=== PATIENT | male | born 1965 | race Two or more races ===

== ENCOUNTER 2018-04-24 12:48 | Emergency (ER) | payer MEDICAID ==
[~2018-04-24] VITALS: Ht 170.2 cm; Wt 77.1 kg
[2018-04-24] MEDS ORDERED: Solu-MEDROL 125mg Inj IVP ONE (13:00)
[2018-04-24] MEDS ORDERED: EPINEPHrine 1mg/1ml Amp SUBQ ONE (13:00)
[2018-04-24] MEDS ORDERED: DiphenhydrAMINE 50mg/ml Inj IVP ONE (13:00)
--- NOTE | 2018-04-24 13:15 | Emergency Room Report ---
History of Present Illness General Chief Complaint: Allergic Reaction Source: Patient Present Illness HPI Patient is a 52-year-old male who presented after increased difficulty breathing. Patient gradual onset of symptoms. The patient reportedly had taken Benadryl prior to arrival by mouth. He reports having prior history of allergic reactions. He reports feeling somewhat lightheaded. He denies any vomiting. He reports eating some eggs immediately prior as well as drinking some coffee. The patient onset of symptoms approximate one hour ago. Allergies: Coded Allergies: UNABLE TO ASSESS (Unverified , 04/24/18) Patient History Past Medical History: see triage record Reviewed Nursing Documentation: PMH: Agreed; PSxH: Agreed Nursing Documentation-PMH Past Medical History: No History, Except For Hx Neurological Problems: No - Allergic reactions Review of Systems All Other Systems: negative except mentioned in HPI Physical Exam Vital Signs Date Time Temp Pulse Resp B/P (MAP) Pulse Ox O2 Delivery O2 Flow Rate FiO2 04/24/18 12:55 96.4 73 16 93/62 98 Simple Mask 3.0 96.4 Sp02 EP Interpretation: reviewed, normal General Appearance: normal inspection, well appearing, alert, GCS 15 Head: atraumatic ENT: normal ENT inspection, hearing grossly normal, normal voice Neck: normal inspection, full range of motion, supple, no bony tend Respiratory: normal inspection, lungs clear, normal breath sounds, no respiratory distress, no retraction, no wheezing Cardiovascular #1: regular rate, rhythm, no edema Gastrointestinal: normal inspection, normal bowel sounds, non tender, soft, no guarding, no hernia Genitourinary: no CVA tenderness Musculoskeletal: normal inspection, back normal, normal range of motion Neurologic: normal inspection, alert, responsive, speech normal Psychiatric: normal inspection, judgement/insight normal, mood/affect normal Skin: no rash, other - generalized urticarial rash Medical Decision Making Diagnostic Impression: Primary Impression: Allergic reaction ER Course Patient presented for skin rash. Differential diagnosis included was not limited to Spring-Clifford syndrome, urticaria, erythema multiforme, contact dermatitis. The patient was given IV Benadryl as well as Solu-Medrol and subcutaneous epinephrine. Patient started on IV fluids.The patient was observed in the emergency department was noted to have improvement in his symptoms.The patient stated he felt better wanted to go home. The patient was given restrictions for EpiPen as well as steroids and Benadryl. The patient was advised to return if he began having increased difficulty breathing or other concerns. Last Vital Signs Date Time Temp Pulse Resp B/P (MAP) Pulse Ox O2 Delivery O2 Flow Rate FiO2 04/24/18 12:55 96.4 73 16 93/62 98 Simple Mask 3.0 96.4 Status: improved Disposition: HOME, SELF-CARE Condition: Stable Scripts Prednisone* (PREDNISONE*) 20 Mg Tablet 60 MG ORAL DAILY, #15 TAB Prov: Juan David Schwab MD 04/24/18 Epinephrine (Epipen 2-Stef) 0.3 Mg/0.3 Ml Auto.injct 0.3 MG IM ONCE, #1 EA Prov: Juan David Schwab MD 04/24/18 Diphenhydramine Hcl* (BENADRYL*) 25 Mg Capsule 25 MG ORAL Q6H PRN for Itching, #30 CAP Prov: Juan David Schwab MD 04/24/18 Juan David Schwab MD Apr 24, 2018 13:15
[2018-04-24 13:20] VITALS: BP 105/58
[2018-04-24 13:30] LABS: HEMATOCRIT 55.3 % (42.0-52.0); MEAN CORPUSCULAR VOLUME 88 FL (80-99); PLATELET COUNT 273 K/UL (150-450); RED BLOOD COUNT 6.29 M/UL (4.70-6.10); RED CELL DISTRIBUTION WIDTH 11.6 % (11.6-14.8); WHITE BLOOD COUNT 10.7 K/UL (4.8-10.8)
[2018-04-24 13:31] LABS: HEMOGLOBIN 18.5 G/DL (14.2-18.0)
[2018-04-24 13:41] LABS: ANION GAP 8 mmol/L (5-15); BLOOD UREA NITROGEN 18 mg/dL (7-18); CALCIUM 9.5 MG/DL (8.5-10.1); CARBON DIOXIDE 25 MMOL/L (21-32); CHLORIDE 105 MMOL/L (98-107); CREATININE 1.3 MG/DL (0.55-1.30); POTASSIUM 3.8 MMOL/L (3.5-5.1); SODIUM 138 MMOL/L (136-145)
[2018-04-24 13:47] LABS: ALANINE AMINOTRANSFERASE 33 U/L (12-78); ALBUMIN/GLOBULIN RATIO 1.1 (1.0-2.7); ALKALINE PHOSPHATASE 68 U/L (46-116); ASPARTATE AMINO TRANSFERASE 19 U/L (15-37); BILIRUBIN,TOTAL 0.6 MG/DL (0.2-1.0)
[2018-04-24 14:30] VITALS: BP 108/60
[2018-04-24] MEDS ORDERED: BENADRYL25 MG ORAL (14:55)
[2018-04-24] MEDS ORDERED: EPIPEN 2-P0.3 MG/0.3 IM (14:55)
[2018-04-24] MEDS ORDERED: PREDNISONE20 MG ORAL (14:55)
[2018-04-24 15:30] VITALS: BP 98/53
== END 2018-04-24 15:10 | disposition home or self-care (01) ==
LOC: EMR 13:00
DX: T78.1XXA Other adverse food reactions, not elsewhere classified, initial encounter (principal); L50.0 Allergic urticaria; R06.00 Dyspnea, unspecified; R51 Headache; H53.8 Other visual disturbances
CPT/HCPCS: 36415; 80053; 85007; 85025; 96361; 96374; 96375; 99284; J0171; J1200; J2930